=== PATIENT | female | born 1955 | race Caucasian/White ===

== ENCOUNTER → 2019-07-19 | Outpatient (CLI) | payer OTHER ==
[2019-06-28 15:00] VITALS: BP 184/95
[~2019-07-19] MED LIST: CITA40TA5 PO; CRESTOR10 MG PO; GEMF600T8 PO; NAPR220C4 PO; OMEP20CA16 PO; ZOLP10TA PO
--- NOTE | 2019-07-19 09:54 | KCIC ---
Left breast ultrasound: Reason for examination: Follow-up nodule. Comparison is made to previous study dated 01/15/2019. Left breast ultrasound including the axillary region of the left breast was performed. At the 12:00 position 3 cm from the nipple, there continues to be a small 6.4 mm septated fibrocystic lesion which is unchanged. There are no new cystic or solid nodules seen. No abnormal appearing lymph nodes are seen in the axilla. IMPRESSION: Small fibrocystic lesion at 12:00 position persists and shows no significant change. Recommend reevaluation in 6 months which can be performed at the time of bilateral mammograms. BI-RADS Category 3: Probably benign. "Our facility is accredited by the [employer] Mammography Program." This patient's information has been entered into a reminder system for the patient to be notified with the results of her examination and a target date for the next mammogram. Electronically signed by: Mariella Gautam MD (07/19/2019 9:51 AM) [email or web address]
== END | disposition home or self-care (01) ==
LOC: KCIC US 08:50 → MERGE 09:00
PROVIDERS: ATTEND Nurse Practitioner Family
DX: N64.89 Other specified disorders of breast (principal)
CPT/HCPCS: 76641

== ENCOUNTER → 2020-01-20 | Outpatient (CLI) | payer OTHER ==
[2019-06-28 15:00] VITALS: BP 184/95
--- NOTE | 2020-01-20 08:51 | KCIC ---
Chest radiograph 01/20/2020 12:00 AM INDICATION: Cough, shortness of air COMPARISON: None available TECHNIQUE: Frontal and lateral views of the chest are provided. FINDINGS: The cardiomediastinal silhouette is within normal limits. There are no pleural effusions. There is no pulmonary vascular congestion. There is no pneumothorax. There is flattening of the diaphragms as may be seen with air trapping associated with COPD. Lungs are clear. No significant osseous abnormality is identified. IMPRESSION: COPD changes without acute cardiopulmonary process. Electronically signed by: Yanelis Leyva MD (01/20/2020 8:48 AM) [facility]
== END | disposition home or self-care (01) ==
LOC: KCIC 08:07
PROVIDERS: ATTEND Nurse Practitioner Gerontology
DX: J44.9 Chronic obstructive pulmonary disease, unspecified (principal); R06.02 Shortness of breath; F17.200 Nicotine dependence, unspecified, uncomplicated; R01.1 Cardiac murmur, unspecified; R05 Cough
CPT/HCPCS: 71046

== ENCOUNTER → 2020-01-20 | Outpatient (CLI) | payer OTHER ==
[2019-06-28 15:00] VITALS: BP 184/95
--- NOTE | 2020-01-20 09:39 | KCIC ---
Bilateral diagnostic digital mammograms: Reason for examination: Follow-up left breast nodule. Comparison is made to previous studies dated 01/04/2019 and 03/17/2017. Interpretation was made with the benefit of CAD. The skin and nipples show no abnormalities. No abnormal axillary lymph nodes are seen. The breast parenchyma shows scattered fibroglandular density. (Breast density: Category B.) There continues to be a small nodule in the retroareolar 12:00 position of the left breast which shows a slight decrease in overall size. There are no new Dominant masses, suspicious calcifications or architectural distortions. Impression: Small nodule in the retroareolar 12:00 position of the left breast with a slight decrease in size. Ultrasound to follow. BI-RADS Category 0: Incomplete. Needs additional imaging evaluation. Left breast ultrasound: Comparison is made to previous studies dated 07/19/2019 and 01/15/2019. Ultrasound examination of the left breast was performed with attention to the area of mammographic concern and the left axilla. There continues to be a small fibrocystic lesion at the 12:00 position 3 cm from the nipple measuring 5.8 mm in greatest dimension. This has shown a slight decrease in size from 6.4 mm. No new cystic or solid nodules are seen. No abnormal appearing lymph nodes are seen in the axilla. IMPRESSION: Continued presence of a benign-appearing fibrocystic lesion at the 12:00 position with a slight decrease in size. No suspicious abnormality seen. Recommend routine mammographic follow-up. BI-RADS Category 2: Benign. "Our facility is accredited by the [employer] Mammography Program." This patient's information has been entered into a reminder system for the patient to be notified with the results of her examination and a target date for the next mammogram. Electronically signed by: Mariella Gautam MD (01/20/2020 9:36 AM) [email or web address]
== END | disposition home or self-care (01) ==
LOC: KCIC MAMMO 07:49
PROVIDERS: ATTEND Nurse Practitioner Family
DX: R92.2 Inconclusive mammogram (principal); N63.22 Unspecified lump in the left breast, upper inner quadrant
CPT/HCPCS: 76641; 77066

== ENCOUNTER → 2020-01-24 | Outpatient (CLI) | payer OTHER ==
[2019-06-28 15:00] VITALS: BP 184/95
--- NOTE | 2020-01-24 16:46 | KCIC ---
EXAM: CT Lung Cancer Screening Chest without IV contrast INDICATION: Lung cancer screening. 1 pack a day smoker for 45 years TECHNIQUE: Multi-detector row low dose CT images were acquired from the thoracic inlet through the upper abdomen without the use of IV contrast. Scanning parameters were adjusted for evaluation of lung parenchyma for developing lung carcinoma with limited patient exposure. Sagittal and coronal images were acquired from the transaxial data. All CT scans performed at this facility utilize dose optimization techniques as appropriate to the exam, including the following: Automated exposure control and adjustment of the mA and/or KV according to patient size (this includes techniques or standardized protocols for targeted exams where dose is indication/reason for exam). COMPARISON: 05/14/2016 CT chest without IV contrast. FINDINGS: The absence of IV contrast limits evaluation of soft tissue pathology. CARDIOVASCULAR: Unremarkable. MEDIASTINUM & JASPREET: No adenopathy or masses. LUNGS: Stable 4 mm left upper lobe pulmonary nodule (image 23 of series 2 this exam, compared with image 22 of series 2 on the prior study). Previously reported right upper lobe pulmonary nodule is not as well seen on this examination and may have since resolved. No new, suspicious pulmonary nodule identified. Stable wedge-shaped nodular density along the major fissure of both lobes (image 36 of series 2 on the right and image 33 of series 2 on the left) are compatible with intrapulmonary lymph nodes. PLEURAL SPACE: No pleural effusions. No pneumothorax. OSSEOUS & SOFT TISSUES: Thoracic spinal degenerative changes. No acute or aggressive osseous lesions. ABDOMEN: The visualized portions of the upper abdomen are normal. Lung-RADS ASSESSMENT: LUNG-RADS CATEGORY 2: Benign Appearance or Behavior/Nodules with a very low likelihood of becoming a clinically active cancer due to size or lack of growth. -- Continue annual screening with LDCT in 12 months. E1: Soft tissue structures and skeletal structures other than the lungs are normal. IMPRESSION: Centrilobular emphysema with no suspicious lung nodules or masses. Recommended LDCT in 12 months. Electronically signed by: Ai Stover MD (01/24/2020 4:42 PM) [id number]
== END | disposition home or self-care (01) ==
LOC: KCIC CT 10:08
PROVIDERS: ATTEND Nurse Practitioner Gerontology
DX: F17.210 Nicotine dependence, cigarettes, uncomplicated (principal); Z12.2 Encounter for screening for malignant neoplasm of respiratory organs
CPT/HCPCS: G0297

== ENCOUNTER → 2020-02-17 | Outpatient (CLI) | payer OTHER ==
[2019-06-28 15:00] VITALS: BP 184/95
--- NOTE | 2020-02-17 14:22 | CARD ---
MR#: [id number] Date of Study: 02/17/2020 Ordering Physician: ADA RAMIREZ, Referring Physician: ADA RAMIREZ, Tech: Mary York RDCS APPROVED REPORT EXAM: Two-dimensional and M-mode echocardiogram with Doppler and color Doppler. Other Information Quality : Good INDICATION COPD Dyspnea Murmur Patient having active chest pain during echo RISK FACTORS Smoking 2D DIMENSIONS RVDd2.6 (2.9-3.5cm)Left Atrium(2D)3.7 (1.6-4.0cm) IVSd0.9 (0.7-1.1cm)Aortic Root(2D)3.0 (2.0-3.7cm) LVDd4.7 (3.9-5.9cm)LVOT Diameter2.2 (1.8-2.4cm) PWd0.9 (0.7-1.1cm)LVDs3.4 (2.5-4.0cm) FS (%) 28.2 %SV56.7 ml LVEF(%)54.5 (>50%) Aortic Valve AoV Peak Cecilio.157.0cm/sAoV VTI34.5cm AO Peak GR.9.9mmHgLVOT Peak Cecilio.110.7cm/s AO Mean GR.4mmHgAVA (VMAX)2.75cm2 MICHELLE (VTI)3.10cm2 Mitral Valve MV E Nhsevcvj83.2cm/sMV DECEL YGBX775tm MV A Jprwuuph82.5cm/sE/A Ratio1.0 Tricuspid Valve TR P. Mhnvqlkt588lh/sRAP YXWDPROO1gvIk TR Peak Gr.63amItJXER92ipYn Pulmonary Vein S1 Uxegnjcc53.1cm/sD2 Qmcmehkj98.0cm/s LEFT VENTRICLE The left ventricle is normal size. There is normal left ventricular wall thickness. The left ventricu lar systolic function is normal and the ejection fraction is within normal range. The Ejection Fracti on is 55-60%. There is normal LV segmental wall motion. Transmitral Doppler flow pattern is Grade I-a bnormal relaxation pattern. RIGHT VENTRICLE The right ventricle is normal size. The right ventricular systolic function is normal. ATRIA The left atrium size is normal. The right atrium size is normal. The interatrial septum is intact wit h no evidence for an atrial septal defect or patent foramen ovale as noted on 2-D or Doppler imaging. AORTIC VALVE The aortic valve is mildly thickened but opens well. Doppler and Color Flow revealed trace aortic reg urgitation. There is no significant aortic valvular stenosis. MITRAL VALVE The mitral valve is normal in structure and function. There is no evidence of mitral valve prolapse. There is no mitral valve stenosis. Doppler and Color-flow revealed trace to mild mitral regurgitation . TRICUSPID VALVE The tricuspid valve is normal in structure and function. Doppler and Color Flow revealed mild eccentr ic tricuspid regurgitation. There is mild pulmonary hypertension. The PA pressure was estimated at 35 mmHg. There is no tricuspid valve stenosis. PULMONIC VALVE The pulmonic valve is not well visualized. Doppler and Color Flow revealed trace pulmonic valvular re gurgitation. There is no pulmonic valvular stenosis. GREAT VESSELS The aortic root is normal in size. The ascending aorta is normal in size. The IVC is normal in size a nd collapses >50% with inspiration. PERICARDIAL EFFUSION There is no evidence of significant pericardial effusion. Critical Notification Critical Value: No <Conclusion> The left ventricular systolic function is normal and the ejection fraction is within normal range. Th e Ejection Fraction is 55-60%. There is normal LV segmental wall motion. Signed by : Isaiah Ariza, Electronically Approved : 02/17/2020 14:22:23
== END ==
LOC: ECHO 09:44
PROVIDERS: ATTEND Nurse Practitioner Gerontology
DX: I07.1 Rheumatic tricuspid insufficiency (principal); I27.20 Pulmonary hypertension, unspecified
CPT/HCPCS: 93306

== ENCOUNTER → 2020-12-27 | Outpatient (CLI) | payer OTHER ==
[2019-06-28 15:00] VITALS: BP 184/95
[~2020-12-27] MED LIST changes: +GEMF600T20 PO; -GEMF600T8 PO
--- NOTE | 2020-12-27 09:40 | KCIC ---
CT LOW DOSE LUNG SCREEN dated 12/27/2020 8:30 AM Indication:Reason: SMOKER X 48 YEARS / Spl. Instructions: / History: Comparison: CT 01/24/2020. Technique: Helical noncontrast low-dose CT images were performed. One or more of the following individualized dose reduction techniques were utilized for this examinat ion: 1. Automated exposure control 2. Adjustment of the mA and/or kV according to patient size 3. Use of iterative reconstruction technique Findings: Tiny left upper lobe nodule remains stable. Small lymph nodes are again seen along the major fissures . These are considered benign. A small right upper lobe nodule (image 27 of axial series 2) appears s table since the prior study. This measures about 3 mm. No significant new parenchymal abnormality is seen. Some emphysema is again demonstrated. The central airways appear normal. No enlarged lymph nodes are seen. Images through the upper abdomen show no abnormality. IMPRESSION: Stable appearance of likely benign nodules. No significant new findings. Lung RADS category 2. Electronically signed by: Jesús Blair Jr., MD (12/27/2020 9:38 AM) [id number]
--- NOTE | 2020-12-28 08:02 | KCIC ---
Bilateral digital screening mammograms: Reason for examination: Routine screening. Comparison is made to previous mammogram dated 01/20/2020. Correlation is made with the left breast ul trasound from 01/20/2020. Interpretation was made with the benefit of CAD. Findings: Breast density: Category B. There are scattered areas of fibroglandular density.. There are no new suspicious masses, malignant appearing calcifications or architectural distortions. The previously noted small cluster of cysts in the 12:00 left breast has decreased further in size is no longer visualized Impression: No evidence of malignancy. Assessment: BI-RADS Category 3: Probably Benign. This patient's information has been entered into a reminder system for the patient to be notified wit h the results of her examination and a target date for the next mammogram. Electronically signed by: Shagufta Mclaughlin MD (12/28/2020 7:59 AM) [email or web address]
--- NOTE | 2020-12-28 13:55 | KCIC ---
ADDENDUM ADDENDUM #1 Correction: ASSESSMENT: BI-RADS Category 2. Benign finding. Recommendation: Routine screening mammograms. Electronically signed by: Shagufta Crandall MD (12/28/2020 8:30 AM) [email or web address] ORIGINAL REPORT Bilateral digital screening mammograms: Reason for examination: Routine screening. Comparison is made to previous mammogram dated 01/20/2020. Correlation is made with the left breast ultrasound from 01/20/2020. Interpretation was made with the benefit of CAD. Findings: Breast density: Category B. There are scattered areas of fibroglandular density.. There are no new suspicious masses, malignant appearing calcifications or architectural distortions. The previously noted small cluster of cysts in the 12:00 left breast has decreased further in size is no longer visualized Impression: No evidence of malignancy. Assessment: BI-RADS Category 3: Probably Benign. This patient's information has been entered into a reminder system for the patient to be notified with the results of her examination and a target date for the next mammogram. Electronically signed by: Shagufta Crandall MD (12/28/2020 7:59 AM) [email or web address] DICTATED AND SIGNED BY: SHAGUFTA CRANDALL MD DATE: 12/28/20829 CC: ADA RAMIREZ APRN; KULDIP STEWART MD ~ Bilateral digital screening mammograms: Reason for examination: Routine screening. Comparison is made to previous mammogram dated 01/20/2020. Correlation is made with the left breast ultrasound from 01/20/2020. Interpretation was made with the benefit of CAD. Findings: Breast density: Category B. There are scattered areas of fibroglandular density.. There are no new suspicious masses, malignant appearing calcifications or architectural distortions. The previously noted small cluster of cysts in the 12:00 left breast has decreased further in size is no longer visualized Impression: No evidence of malignancy. Assessment: BI-RADS Category 3: Probably Benign. This patient's information has been entered into a reminder system for the patient to be notified with the results of her examination and a target date for the next mammogram. [facility]
== END ==
LOC: KCIC MAMMO 07:52
PROVIDERS: ATTEND Family Medicine
DX: Z12.31 Encounter for screening mammogram for malignant neoplasm of breast (principal); Z12.2 Encounter for screening for malignant neoplasm of respiratory organs; F17.210 Nicotine dependence, cigarettes, uncomplicated; R91.1 Solitary pulmonary nodule
CPT/HCPCS: 71271; 77067